=== PATIENT | male | born 1950 | race Asian ===

== ENCOUNTER 2023-02-09 07:55 | Emergency (ER) | payer OTHER ==
[~2023-02-09] VITALS: Ht 172.7 cm; Wt 77.1 kg
[2023-02-09 08:05] VITALS: BP 161/72; PULSE 75; RESP 12; TEMP 98.3; O2SAT 100
[2023-02-09] MEDS ORDERED: ACETAMINOPHEN EXTRA STRENGTH 500 MG TAB PO ONE (09:00)
[2023-02-09] MEDS ORDERED: ACET-10509 PO (09:06)
[2023-02-09 10:04] VITALS: BP 166/74; PULSE 89; RESP 16; O2SAT 100
== END 2023-02-09 10:04 | disposition home or self-care (01) ==
LOC: MED 07:55
DX: S00.83XA Contusion of other part of head, initial encounter (principal); R42 Dizziness and giddiness; I10 Essential (primary) hypertension; Z79.899 Other long term (current) drug therapy; Y04.2XXA Assault by strike against or bumped into by another person, initial encounter; Y93.89 Activity, other specified; Y92.89 Other specified places as the place of occurrence of the external cause; Y99.8 Other external cause status
CPT/HCPCS: 70450; 72125; 99284